=== PATIENT | female | born 1990 | race Caucasian/White ===

== ENCOUNTER 2017-12-31 14:40 | Inpatient (IN) | payer OTHER ==
[2017-12-31] VITALS (26 sets, daily range): BP systolic 117–146; BP diastolic 56–83; PULSE 56–100; TEMP 98.2–98.5
[~2017-12-31] VITALS: Ht 162.6 cm; Wt 71.8 kg
[2017-12-31] MEDS ORDERED: TUMS500 MG PO (14:48)
[2017-12-31] MEDS ORDERED: ZANTAC 7575 MG PO (14:48)
[2017-12-31] MEDS ORDERED: PRENATAL (14:49)
[2017-12-31 19:32] LABS: BASO % 0.3 % (0.0-2.0); EOS # 0.1 (0.0-0.7); EOS % 0.8 % (0-4.0); GRAN # 9.5 (1.4-6.5); GRAN % 76.1 % (42.2-75.2); HEMOGLOBIN 11.6 g/dl (12.5-16.0); LYMPH # 1.7 (1.2-3.4); LYMPH % 13.7 % (20.0-51.0); MEAN CELL VOLUME 88 fl (80.0-100.0); MEAN CORPUSCULAR HEMOGLOBIN 30 pg (27.0-31.0); MEAN CORPUSCULAR HGB CONC 34 g/dl (33.0-37.0); MEAN PLATELET VOLUME 11.5 fl (7.4-10.4); MONO # 1.1 (0.1-0.6); MONO % 8.4 % (1.7-9.3); PLATELET COUNT 210 K/mm3 (130-400); RED BLOOD COUNT 3.87 M/mm3 (4.10-5.30); REDCELL DISTRIBUTION WIDTH-CV 12.5 % (11.5-14.5)
[2017-12-31 19:33] LABS: HEMATOCRIT 34.1 % (37.0-47.0)
[2018-01-01] VITALS: BP 121/61; PULSE 84
[2018-01-01 00:30] VITALS: BP 146/65; PULSE 84
[2018-01-01 01:30] VITALS: BP 122/62; PULSE 85
[2018-01-01 02:30] VITALS: BP 118/63; PULSE 76
[2018-01-01 06:30] VITALS: BP 120/66; PULSE 73; TEMP 97.9
[2018-01-01 07:35] LABS: HEMATOCRIT 27.7 % (37.0-47.0); HEMOGLOBIN 9.4 g/dl (12.5-16.0)
[2018-01-01] MEDS ORDERED: PERCOCET 325 MG1 TA2 PO (10:45)
[2018-01-01] MEDS ORDERED: IBU600 MG PO (10:45)
[2018-01-01 21:10] VITALS: BP 114/69; PULSE 75; TEMP 97
[2018-01-02 07:40] VITALS: BP 110/68; PULSE 76; TEMP 98.6
[2018-01-02] MEDS ORDERED: PROCTOFOAM-HC F10 G1 RC (09:25)
== END 2018-01-02 16:38 | disposition home or self-care (01) | DRG 775 ==
LOC: LDRO 14:40 → LDR 18:00 → OB 01-01 01:25
PROVIDERS: Obstetrics & Gynecology
PROC: 10D07Z6 Extraction of Products of Conception, Vacuum, Via Natural or Artificial Opening (ICD-10-PCS; principal; 2017-12-31)
PROC: 0KQM0ZZ Repair Perineum Muscle, Open Approach (ICD-10-PCS; 2017-12-31)
DX: O76 Abnormality in fetal heart rate and rhythm complicating labor and delivery (principal); D62 Acute posthemorrhagic anemia; Z3A.40 40 weeks gestation of pregnancy; Z37.0 Single live birth; O70.1 Second degree perineal laceration during delivery; O99.02 Anemia complicating childbirth
CPT/HCPCS: J2590; J2795; J7120